=== PATIENT | male | born 1980 | race Caucasian/White ===

== ENCOUNTER 2017-02-03 05:59 | Emergency (ER) | END 2017-02-03 13:42 | disposition short-term general hospital (02) | DX: F10.232 Alcohol dependence with withdrawal with perceptual disturbance (principal); R40.2252 Coma scale, best verbal response, oriented, at arrival to emergency department; S02.80XA Fracture of other specified skull and facial bones, unspecified side, initial encounter for closed fracture; S83.92XA Sprain of unspecified site of left knee, initial encounter; S06.0X1A Concussion with loss of consciousness of 30 minutes or less, initial encounter; S27.321A Contusion of lung, unilateral, initial encounter; S27.0XXA Traumatic pneumothorax, initial encounter; F17.210 Nicotine dependence, cigarettes, uncomplicated; R40.2142 Coma scale, eyes open, spontaneous, at arrival to emergency department; R40.2362 Coma scale, best motor response, obeys commands, at arrival to emergency department; Y08.89XA Assault by other specified means, initial encounter | CPT/HCPCS: 12053; 36415; 70450; 70486; 71010; 71260; 73562; 80053; 80306; 81001; 83690; 85025; 85610; 90471; 90715; 96374; 96375; J0696; J1170; J1885; J2060; J2405; J7030; Q9967; Z7502; Z7610 ==